=== PATIENT | male | born 1960 | race Caucasian/White ===

== ENCOUNTER 2022-05-10 23:27 | Inpatient (IN) | payer OTHER ==
[~2022-05-10] VITALS: Ht 195.6 cm; Wt 113.1 kg
[2022-05-11 01:50] LABS: HEMOGLOBIN 13.9 gm/dl (14.0-17.5); RED BLOOD COUNT 4.5 M/UL (4.20-5.50); WHITE BLOOD COUNT 17.5 K/UL (4.5-11.0)
[2022-05-11] MEDS ORDERED: SUBOXONE 8 MG-1 EACH SL (10:03)
[2022-05-11] MEDS ORDERED: IBU800 MG PO (10:04)
[2022-05-11] MEDS ORDERED: ONDANSETRON ODT4 MG PO (10:04)
[2022-05-12 04:49] LABS: WHITE BLOOD COUNT 13.7 K/UL (4.5-11.0)
[2022-05-12 04:53] LABS: HEMOGLOBIN 11.9 gm/dl (14.0-17.5); RED BLOOD COUNT 3.93 M/UL (4.20-5.50)
[2022-05-12 05:43] LABS: BUN/CREATININE RATIO 12 (0-10)
[2022-05-12 09:15] LABS: HBSAG SCREEN Negative (Negative); HCV AB 0.1 (0.0-0.9); HEP A AB, IGM Negative (Negative); HEP B CORE AB, IGM Negative (Negative)
[2022-05-13] MEDS ORDERED: INVANZ 1 GM VIAL1 GM IV (17:56)
[2022-05-14 05:31] LABS: BUN/CREATININE RATIO 11 (0-10); HEMOGLOBIN 12.1 gm/dl (14.0-17.5); RED BLOOD COUNT 4.06 M/UL (4.20-5.50); WHITE BLOOD COUNT 12.7 K/UL (4.5-11.0)
[2022-05-14] MEDS ORDERED: VANCOMYCIN1.5 GM/300 IV (11:22)
== END 2022-05-14 16:32 | disposition home health service (06) | DRG 872 ==
LOC: ER1 23:27 → MED SURG 4 05-11 02:15 → CDU 05-11 02:15 → MED SURG 4 05-11 09:56
PROVIDERS: Internal Medicine; Student in an Organized Health Care Education/Training Program; ADMIT Internal Medicine
PROC: 3E03329 Introduction of Other Anti-infective into Peripheral Vein, Percutaneous Approach (ICD-10-PCS; 2022-05-11)
PROC: 02HV33Z Insertion of Infusion Device into Superior Vena Cava, Percutaneous Approach (ICD-10-PCS; principal; 2022-05-14)
PROC: B548ZZA Ultrasonography of Superior Vena Cava, Guidance (ICD-10-PCS; 2022-05-14)
DX: A41.9 Sepsis, unspecified organism (principal); Z20.822 Contact with and (suspected) exposure to COVID-19; L03.116 Cellulitis of left lower limb; F11.20 Opioid dependence, uncomplicated; N17.9 Acute kidney failure, unspecified; Z96.653 Presence of artificial knee joint, bilateral; R74.01 Elevation of levels of liver transaminase levels; I89.0 Lymphedema, not elsewhere classified; Z82.5 Family history of asthma and other chronic lower respiratory diseases
CPT/HCPCS: 36415; 73610; 73630; 73700; 80048; 80053; 80074; 80202; 80307; 83036; 83605; 83735; 83880; 84100; 85025; 85027; 85379; 85610; 85652; 86140; 87040; 93971; 96365; 96366; 96367; 96372; 96376; 99285; J0692; J1335; J1650; J2543; J3370; J7030; J7070